=== PATIENT | male | born 1960 | race Caucasian/White ===

== ENCOUNTER 2016-11-27 04:17 | Emergency (ER) | payer OTHER ==
[~2016-11-27] VITALS: Ht 185.4 cm; Wt 88.5 kg
[~2016-11-27 04:17] MED LIST: AMOXICILLIN500 MG PO; BACTRIM DS 8001 TAB PO; IBU800 MG PO
[2016-11-27 04:30] VITALS: BP 163/98
--- NOTE | 2016-11-27 04:35 | ED INFLUENZA/URI COMPLAINT ---
History of Present Illness General Chief Complaint: General Adult Stated Complaint: TONGUE SWELLING,"I THINK ITS A CANKER SORE" PER PT Source: patient Exam Limitations: no limitations Vital Signs & Intake/Output Vital Signs & Intake/Output Vital Signs Date Time Temp Pulse Resp B/P Pulse O2 O2 Flow FiO2 Ox Delivery Rate 11/27 0430 96.8 67 18 163/98 97 Room Air Allergies Coded Allergies: shellfish derived (Intermediate, RASH 11/27/16) Reconcile Medications Amoxicillin 500 MG CAP 1 TAB PO TID CELLULITIS/ABSCESS Ibuprofen (Ibu) 800 MG TAB 1 TAB PO Q8HR PRN PAIN Sulfamethoxazole/Trimethopri (Bactrim Ds 800 MG-160 MG) 1 TAB TAB 1 TAB PO BID CELLULITIS/ABSCESS Triage Note: PT TO ED COMPLAINING OF SWOLLEN TONGUE. PT STATES HE FELT TONGUE WAS SWOLLEN EARLIER TODAY AND HE THOUGHT IT WAS A CANKER SORE. THE DAY PROGRESSED THE TONGUE BECAME MORE SWOLLEN. PT STATES IT IS BECOMING DIFFICULT TO TALK. PT DENIES ANY DAILY MEDS, BUT HE TOOK IBUPROFEN PRIOR TO ARRIVAL. Triage Nurses Notes Reviewed? yes Onset: Abrupt Duration: hour(s): Timing: single episode today Severity: mild Prior Episodes/Possible Cause: no prior episodes Modifying Factors: Improves With: medication. Associated Symptoms: left sided tongue lesion HPI: 48-year-old gentleman Awoke with a lesion on the left side of his tongue. He states, "I felt this pain in my tongue. I was afraid it would be hard to breathe. And so I came in to get checked out." He states that now he is able to breathe without problem. He has no trouble speaking or drinking. He notes that he has a sore on the left side of his tongue. He took 4 pills of ibuprofen with some improvement. He is otherwise well, afebrile, without chest pain dyspnea fever headache. Past History Travel History Traveled to [place] past 21 day No Medical History Any Pertinent Medical History? see below for history Neurological: NONE EENT: NONE Cardiovascular: NONE Respiratory: NONE Gastrointestinal: NONE Hepatic: NONE Renal: NONE Musculoskeletal: NONE Psychiatric: NONE Endocrine: NONE Blood Disorders: NONE Cancer(s): NONE L TACKER/Reproductive: NONE Surgical History Surgical History: non-contributory Psychosocial History What is your primary language Portuguese Tobacco Use: Never used ETOH Use: denies use Illicit Drug Use: denies illicit drug use Family History Hx Contributory? No Review of Systems Review of Systems Constitutional: Reports: no symptoms. EENTM: Reports: no symptoms. Respiratory: Reports: no symptoms. Cardiovascular: Reports: no symptoms. GI: Reports: no symptoms. Genitourinary: Reports: no symptoms. Musculoskeletal: Reports: no symptoms. Skin: Reports: no symptoms. Neurological/Psychological: Reports: no symptoms. Hematologic/Endocrine: Reports: no symptoms. Immunologic/Allergic: Reports: no symptoms. All Other Systems: Reviewed and Negative Physical Exam Physical Exam General Appearance: well developed/nourished, mild distress Head: atraumatic, normal appearance Eyes: Bilateral: normal appearance. Ears, Nose, Throat: left lateral aspect of tongue 0.5cm ulceration Neck: normal inspection, supple, full range of motion Respiratory: normal breath sounds, chest non-tender, no respiratory distress, quiet respiration, lungs clear Cardiovascular: regular rate/rhythm Gastrointestinal: normal bowel sounds, soft, non-tender, no organomegaly Back: normal inspection, normal range of motion Extremities: normal inspection, normal capillary refill, normal range of motion, no edema Neurologic/Psych: no motor/sensory deficits, awake, alert, oriented x 3 Skin: intact, normal color, warm/dry Core Measures Severe Sepsis Present: No Septic Shock Present: No Progress Differential Diagnosis: viral exanthem/ulceration vs other Plan of Care: given benadryl and decadron for symptomatic care... encouraged close follow up. Initial ED EKG: none Departure Departure Disposition: HOME OR SELF CARE Condition: Stable Clinical Impression Primary Impression: Glossitis Referrals: TYSON PIERCE,BASIM Tobar (PCP/Family) Departure Forms: Customer Survey General Discharge Information
== END 2016-11-27 05:12 ==
LOC: ERH 04:17
DX: K14.0 Glossitis (principal)
CPT/HCPCS: J1100